=== PATIENT | female | born 1965 | race Caucasian/White ===

== ENCOUNTER 2023-12-13 10:08 | Emergency (ER) | payer BC, MEDICAID ==
[2023-12-13] MEDS: cefTRIAXone 1 GM Vial IM ONE (10:39)
[2023-12-13 10:43] LABS: BASOPHILS ABSOLUTE AUTO 0.1 x10-3/uL (0.0-0.1); BASOPHILS PERCENT AUTO 0.6 % (0.2-1.5); HEMATOCRIT 40.7 % (34.2-48.2); HEMOGLOBIN 13.6 g/dL (11.4-15.5); LYMPHOCYTES ABSOLUTE AUTO 2.6 x10-3/uL (1.0-4.4); LYMPHOCYTES PERCENT AUTO 21.1 % (18.4-52.1); MEAN CORPUSCULAR HEMOGLOBIN 29.8 pg (23.9-33.9); MEAN CORPUSCULAR HGB CONC 33.5 g/dL (31.9-34.8); MEAN CORPUSCULAR VOLUME 88.9 fL (76.7-100.5); MEAN PLATELET VOLUME 7.6 fL (7.1-12.4); MONOCYTES PERCENT AUTO 8.4 % (4.4-15.7); NEUTROPHILS ABSOLUTE AUTO 8.5 x10-3/uL (1.5-6.3); NEUTROPHILS PERCENT AUTO 69.9 % (30.8-76.2); PLATELET COUNT,PLT 361 x10(3)uL (151-488); RED BLOOD CELL COUNT 4.57 x10(6)uL (3.60-5.20); RED CELL DISTRIBUTION WIDTH 13.4 % (12.3-16.5); WHITE BLOOD CELL COUNT,WBC 12.2 x10-3/uL (3.0-10.3)
[2023-12-13 11:48] VITALS: BP 139/82; PULSE 71
== END 2023-12-13 11:00 | disposition home or self-care (01) ==
LOC: FB.ED 10:08
DX: K04.7 Periapical abscess without sinus (principal); E03.9 Hypothyroidism, unspecified; Z79.82 Long term (current) use of aspirin; Z79.899 Other long term (current) drug therapy
CPT/HCPCS: 36415; 82947; 85025; 96372; 99284; J0696